=== PATIENT | male | born 1960 | race Caucasian/White ===

== ENCOUNTER 2023-04-17 07:52 | Day surgery (SDC) | payer OTHER, SELFPAY ==
[2023-04-09 13:09] VITALS: BMI 26.4
--- NOTE | 2023-04-11 09:46 | W.SUR.PREOP ---
Pre-Operative Surgical Note
-
Elevated LFTs noted on pre-op labs.
Called PCP for trends given no previous blood work in [facility].
AST 50, ALT 68 in January 2023.
Elevated LFTs likely secondary to medications, in particular Atorvastatin.
Discussed results with Dr. Sloan.
Atorvastatin dosing lowered from 40 mg HS to 20 mg HS. Script sent to pharmacy on 04/11.
Will repeat LFTs on Friday 04/14.
[2023-04-14 09:25] LABS: ALT (SGPT) 86 U/L (0-50); AST (SGOT) 68 U/L (17-59); Albumin 4.3 g/dl (3.5-5.0); Alkaline Phosphatase 95 U/L (38-126); Direct Bilirubin 0.3 mg/dl (0.0-0.4); Total Bilirubin 1.1 mg/dl (0.2-1.3)
[2023-04-17] VITALS (18 sets, daily range): BP systolic 92–142; BP diastolic 51–76; BMI 26.3
[2023-04-17 08:25] LABS: INR 2.93
--- NOTE | 2023-04-17 14:42 | ITS.CL.ABL ---
Electromechanical Assembly Technician - Ablation
Ablation
Procedure Report:
ELECTROPHYSIOLOGY ABLATION STUDY
DATE:: April 17, 2023 REFERRING: Dr. Chi rdz
INDICATION: Paroxysmal supraventricular tachycardia in the form of atypical atrial flutter. As above
HISTORY: See H and P. As above
ANTIARRHYTHMIC DRUG: Flecainide. of note the patient is on Biktarvy
PRE-PROCEDURE STAS: No atrial thrombus
PRESENTING RHYTHM: Sinus rhythm
'TIME-OUT': called and confirmed.
SEDATION/ANESTHESIA: provided via the anesthesia department using general anesthesia (LMA).
INTRAVENOUS/ARTERIAL ACCESS:
Right femoral venous -8Fr
Left femoral venous - 8 Fr, 6 Fr
The Vascade closure was utilized for each venotomy
Ultrasound guidance for bilateral femoral vein access was utilized by me to obtain access with demonstration of normal anatomy
CHADS-VASC Score:
HAS-Bled Score
PROCEDURE:
1. A decapolar CS catheter was placed within the CS for mapping and pacing. This was also used as the reference catheter for the 3-D map. With 280 ms pacing from the right atrium and coronary sinus the patient was inducible for atrial flutter
cycle length 320 ms with activation and entrainment mapping from both atria demonstrating entire cycle length from the low posterior wall outside the right inferior pulmonary vein and an area of scar with the arrhythmia turning around this area of
scar and entrainment less than 30 ms PPI greater than tachycardia cycle length. Tachycardia slowed and transitioned after ablation in this region to clockwise mitral annular flutter. Cycle length of 290 ms with entrainment demonstrated clockwise
mitral annular flutter. Initially a left inferior pulmonary vein to lateral mitral annular line was fashioned although tachycardia only slowed to approximately 310 ms. We then performed an anterior line from approximate 12:00 in the mitral valve
annulus back towards the right superior pulmonary vein roof which slowed tachycardia from 310 ms to 430 ms and then transitioned into a third tachyarrhythmia at 360 ms which paced terminated from pacing for the lateral left atrium. This third
tachyarrhythmia was no longer inducible. Once back in sinus rhythm we confirmed block across the mitral line which was performed anteriorly, entrance and exit block in all 4 pulmonary veins, and entrance and exit block in the left atrial posterior
wall. Pulmonary vein isolation as described as below.
2. The intracardiac ultrasound catheter was positioned in the RA to identify the FO for targeting of transseptal puncture, assist in identification of the pulmonary vein ostia, monitoring pre and post ablation pulmonary vein flow velocities,
monitoring for 'bubble' formation during RF application as a sign of thermal injury, and to monitor for pericardial effusion during mapping and ablation procedure. Left atrial size, LV ejection fraction, and pulmonary vein flows were monitored
pre and post ablation procedure. The other valves were inspected and found to be free of significant regurgitation or stenosis.
3. Half of the calculated heparin bolus was administered prior to the first transeptal puncture. Transseptal puncture was performed to diagnose RA and LA pressure so that safety of LA mapping and ablation could be further assessed, and to access
the left atrium and pulmonary veins for mapping and ablation. This entailed advancing an 10 Hungarian steerable sheath with dilator into the superior vena cava and withdrawing both (monitoring intracardiac ultrasound, fluoroscopy and tip pressure)
with the tip oriented toward the atrial septum. The fossa ovalis was engaged (indicated by sudden displacement of the sheath tip as well as tenting of the fossa seen on intracardiac ultrasound). Left atrial access required a pass with the
Brockenbrough needle extended. Left atrial catheter position was confirmed by pressure monitoring (RA mean pressure 8 mm Hg and LA mean presure 14 mm Hg), LA saturation (99%), as well as fluoroscopy. The sheath was advanced over the dilator and
positioned in the left atrium. This procedure was repeated for the Agilis sheath. The remainder of the calculated heparin bolus was administered and heparin was
infused to maintain ACT at 300 -350 seconds throughout the case.
4. RA pacing was performed via the proximal decapolar poles and LA pacing was performed via the distal decapolr poles.
5. A quadrapolar catheter was first positioned at the His position for His Bundle recording which was tagged via the 3-D Navex sytem, and then passed to the RVA for RV pacing and recording.
6. The 4 mm tactic cath and multipolar catheter placed in each of the LIPV, LSPV, RSPV and the RIPV.
7. Next, a 3-D map was created using Navex. A 3-D reconstructed CT image was compared to the 3-D Navex map to assist in anatomic interpretation, mapping and ablation. The CT image and the NavX image were fused.
8. Utilizing a 4 mm tactic cath catheter the left common ostium as well as the right superior, right middle and right inferior pulmonary veins were isolated and wide absentee-shawnee fashion with entrance and exit block confirmed. In addition to pulmonary
vein isolation there was isolation of the left atrial posterior wall and block across the mitral line which was performed in the right superior pulmonary vein down to the mitral valve annulus at approximately 12:00. Time across the mitral isthmus
was approximately 134 ms. There was entrance and explored confirmed the left atrial posterior wall and there was no heating of the esophagus noted. We paced the septal aspect of the right veins prior to ablation there was no capture phrenic nerve
in these regions.
9. After the posterior wall, 4 pulmonary veins, and mitral line were performed the patient was noninducible for further tachyarrhythmia with AV Wenke block noted at 380 ms.
TOTAL FLOURO TIME: 37 minutes 123 mGy
TOTAL RF DURATION: 47 minutes
REVERSAL OF HEPARIN: 40 mg of protamine, slow IV administration
COMPLICATIONS:
None
Intracardiac US shows no pericardial effusion post ablation.
SUMMARY:
Complex left atrial mapping and ablation.
Isolation of all 4 pulmonary veins, left atrial posterior wall isolation, block across the mitral line from anterior right superior pulmonary vein to 12:00 on the mitral valve annulus. Noninducible for additional tachyarrhythmia. There was no
significant electroanatomic scar in the right atrium.
RECOMMENDATIONS:
1. Admit to monitored bed.
2. Resume anticoagulation
3. Consider stopping flecainide in 1 month
4. Would lower metoprolol as outpatient to 50 mg daily
Copy to: Dr. Chi rdz
[2023-04-17] MEDS: ANESTHETIC LOZENGE 1 LOZENGE PO ×3 (15:23→23:09)
[2023-04-17 15:45] LABS: ACT-LR - POC > 397 Seconds (116-155)
[2023-04-17 15:45] LABS: ACT-LR - POC > 397 Seconds (116-155)
[2023-04-17 15:45] LABS: ACT-LR - POC > 397 Seconds (116-155)
[2023-04-17 15:45] LABS: ACT-LR - POC > 397 Seconds (116-155)
[2023-04-17 15:46] LABS: ACT-LR - POC > 397 Seconds (116-155)
[2023-04-17 15:46] LABS: ACT-LR - POC > 397 Seconds (116-155)
[2023-04-17 15:46] LABS: ACT-LR - POC > 397 Seconds (116-155)
[2023-04-17] MEDS: COUMADIN 2.5 MG PO (18:07)
--- NOTE | 2023-04-17 19:14 | PTCARENOTE ---
Pt received from recovery area post PVI. Pt c/o sore throat only, given lozenge. Bilateral groin sites with dry and intact dressings, no sign of bleeding or hematoma. Pt OOB independently, voiding without difficulty. Telemetry shows sinus rhythm
with occasional PAC's and PVC's.
[2023-04-17] MEDS: LIPITOR 20 MG PO (20:33)
[2023-04-17] MEDS: TAMBOCOR 50 MG PO (20:33)
[2023-04-17] MEDS: ATIVAN 0.5 MG PO (23:09)
[2023-04-18 05:11] LABS: Hematocrit 39.7 % (39.0-52.0); Hemoglobin 13.8 g/dL (13.0-18.0); Mean Corp Hgb Conc. 34.8 g/dL (33.0-37.0); Mean Corpuscular Hgb 32.1 pg (27.0-31.0); Mean Corpuscular Volume 92.3 fL (80.0-94.0); Mean Platelet Volume 10.3 fL (7.4-10.4); Platelet Count 148 10^3/uL (130-400); Red Cell Dist. Width 12.7 % (11.5-14.5); White Blood Cell Count 9.3 10^3/uL (4.8-10.8)
[2023-04-18 05:42] LABS: Blood Urea Nitrogen 13 mg/dl (9-20); Calcium 8.4 mg/dl (8.4-10.2); Carbon Dioxide 26 mmol/L (22-30); Chloride 104 mmol/L (98-107); Estimated Creatinine Clearance 68 ml/min; Glucose 117 mg/dl (70-99); Magnesium 2.2 mg/dl (1.6-2.3); Potassium 4.4 mmol/L (3.5-5.1); Sodium 136 mmol/L (135-145); eGFR > 60.00
[2023-04-18 08:19] VITALS: BP 124/68
[2023-04-18] MEDS: BIKTARVY 50-200-25 MG TABLET 1 TABLET PO (09:09)
[2023-04-18] MEDS: COZAAR 50 MG PO (09:10)
[2023-04-18] MEDS: TAMBOCOR 50 MG PO (09:10)
[2023-04-18] MEDS: ANESTHETIC LOZENGE 1 LOZENGE PO ×2 (09:11→11:41)
[2023-04-18] MEDS: TOPROL XL 100 MG PO (09:26)
--- NOTE | 2023-04-18 09:31 | W.PN.CARDCBS ---
Addendum entered and electronically signed by Anton Sloan MD 04/18/23 10:29:
Patient seen and examined
Agree with BONE COOKING OPERATOR note and assessment
Agree with BONE COOKING OPERATOR plan
Overnight sinus rhythm on telemetry
Examination:
Lumpkin S1 and S2 consistent with mechanical MVR and AVR
Alert and x 3
No murmur
JVP 6
Nonfocal neurologic
Lungs are clear to auscultation
Abdomen soft nontender positive bowel sounds
No extremity edema
Impression:
Symptomatic PAF/Aflutter
post PVI, PW and Mitral flutter line 04/17/23
HTN
HLD
Rheumatic valve disease post Mechanical MVR/AVR 1998
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
HIV
Anxiety
Spinal stenosis
elevated LFT's
SUMMARY:�
Complex left atrial mapping and ablation.
Isolation of all 4 pulmonary veins, left atrial posterior wall isolation, block across the mitral line from anterior right superior pulmonary vein to 12:00 on the mitral valve annulus.� Noninducible for additional tachyarrhythmia.� There was no
significant electroanatomic scar in the right atrium.
Plan:
post ablation feels good
tele SR with brief episodes of PAT
groins stable
OAC Eliquis
Will decrease Metoprolol 50mg daily
Flecainide will stop after 1 mo
ACtivity restrictions reviewed
f/u Dr. Trivedi 2-4 weeks
4-6 mo f/u Dr. Sloan
home today after 24 post anesthesia as pt driving himself home
Original Note:
Today's Communication / Plan
-
stable for dc/ home
Impression / Plan
-
PCP: Stella Enamorado MD
CDY: Chi Trivedi MD
Impression:
Symptomatic PAF/Aflutter
post PVI, PW and Mitral flutter line 04/17/23
HTN
HLD
Rheumatic valve disease post Mechanical MVR/AVR 1998
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
HIV
Anxiety
Spinal stenosis
elevated LFT's
SUMMARY:�
Complex left atrial mapping and ablation.
Isolation of all 4 pulmonary veins, left atrial posterior wall isolation, block across the mitral line from anterior right superior pulmonary vein to 12:00 on the mitral valve annulus.� Noninducible for additional tachyarrhythmia.� There was no
significant electroanatomic scar in the right atrium.
Plan:
post ablation feels good
tele SR with brief episodes of PAT
groins stable
OAC Eliquis
Will decrease Metoprolol 50mg daily
Flecainide will stop after 1 mo
ACtivity restrictions reviewed
f/u Dr. Trivedi 2-4 weeks
4-6 mo f/u Dr. Sloan
home today after 24 post anesthesia as pt driving himself home
Progress Note - Assembly Technician
Subjective
Date of Service: April 18, 2023
no cp, sob
Objective
Labs:
04/18/23 04:44
04/18/23 04:44
Labs
Hgb 13.8 g/dL (13.0-18.0) 04/18/23 04:44
Hct 39.7 % (39.0-52.0) 04/18/23 04:44
Plt Count 148 10^3/uL (130-400) 04/18/23 04:44
PT 31.0 Sec (11.4-14.6) H 04/17/23 08:00
INR 2.93 04/17/23 08:00
Sodium 136 mmol/L (135-145) 04/18/23 04:44
Potassium 4.4 mmol/L (3.5-5.1) 04/18/23 04:44
BUN 13 mg/dl (9-20) 04/18/23 04:44
Creatinine 1.1 mg/dL (0.7-1.3) 04/18/23 04:44
Glucose 117 mg/dl (70-99) H 04/18/23 04:44
Vital Signs and I&O:
Vital Signs
Temp Pulse Resp BP Pulse Ox
98.4 F 59 20 124/68 98
04/18/23 08:18 04/18/23 09:00 04/18/23 08:18 04/18/23 08:19 04/18/23 09:17
Vital Signs
Temp Pulse Resp BP Pulse Ox
98.4 F 59 20 124/68 98
04/18/23 08:18 04/18/23 09:00 04/18/23 08:18 04/18/23 08:19 04/18/23 09:17
Intake & Output
04/16/23 04/17/23 04/18/23 04/19/23
06:59 06:59 06:59 06:59
Intake Total 1640 / 1640 240 / 240
Balance 1640 / 1640 240 / 240
Physical Exam
Physical Exam
NAD< AOX3
S1, S2, RRR
CTAB< non labored, no wheeze
SNTND bsx4
L fem site with scant drainage, soft, R fem c/d/i no HT
--- NOTE | 2023-04-18 10:21 | CM ---
Reviewed chart. Met with Mr. Vora to review discharge plans. He states prior to admission he resides alone in a one story home without any steps to enter. He states prior to admission he was independent with ambulation and adls. He states he does
not have any DME in the home. He states he has a prescription plan and uses [facility]. The discharge plan is to return home when medically stable.
--- NOTE | 2023-04-18 11:13 | W.DS.TRANS ---
DC Summary - Service Captain
-
Discharge Instructions:
Sleep Apnea Risk Intermediate
Discharge Diagnosis/Procedures Afib post ablation
Diet Low Cholesterol
Driving Restrictions No driving for 24 hours
Stop these medications: Stop Flecainide after 1 month.
Decrease Metoprolol to 50mg daily
Instructions:
Stand-Alone Forms: DC Instructions- Cath/EP Lab
Changes to Home Medications: Yes
Discharge Medications:
DC Medications w/original date entered in [facility]
bictegravir 50 mg-emtricitabine 200 mg-tenofovir alafenam 25 mg tablet (Biktarvy) 1 tab PO DAILY 03/27/23
lorazepam 0.5 mg tablet (Ativan) 0.5 mg PO HS 03/27/23
losartan 50 mg tablet 50 mg PO DAILY 03/27/23
warfarin 2.5 mg tablet 2.5 mg PO [facility] 03/27/23
warfarin 5 mg tablet 5 mg PO TUWEFRSA 03/27/23
atorvastatin 20 mg tablet 20 mg PO HS 04/17/23
flecainide 50 mg tablet 50 mg PO Q12H #0 tabs 04/17/23
metoprolol succinate 50 mg tablet,extended release 24 hr (Toprol XL) 50 mg PO DAILY #90 tabs 04/18/23
Home Medication Changes
decreased dose metoprolol from 100mg to 50mg
Pending Results: No
[2023-04-18 12:33] VITALS: BP 93/58
--- NOTE | 2023-04-18 14:35 | PTCARENOTE ---
Pt seen by and Sparkle Lujan NP. Telemetry and IV device removed. Dischage instructions reviewed with pt regarding activity guidelines, wound care, medications, reporting cares and concerns and follow up appt's. Excellent understanding
verbalized. Pt escorted out via wheelchair and pt discharged to home.
== END 2023-04-18 14:00 | disposition home or self-care (01) ==
LOC: CATH 07:52
PROVIDERS: Nurse Practitioner Adult Health; ATTENDING PHYSICIAN Internal Medicine Cardiovascular Disease; FAMILY PHYSICIAN Internal Medicine; OTHER PHYSICIAN Physician Assistant
DX: I48.0 Paroxysmal atrial fibrillation (principal); I48.4 Atypical atrial flutter; I47.19 Other supraventricular tachycardia; G43.909 Migraine, unspecified, not intractable, without status migrainosus; I10 Essential (primary) hypertension; E78.5 Hyperlipidemia, unspecified; I45.2 Bifascicular block; I06.9 Rheumatic aortic valve disease, unspecified; Z95.2 Presence of prosthetic heart valve; M48.02 Spinal stenosis, cervical region; Z21 Asymptomatic human immunodeficiency virus [HIV] infection status; A28.1 Cat-scratch disease; E80.6 Other disorders of bilirubin metabolism; R74.01 Elevation of levels of liver transaminase levels; Z79.01 Long term (current) use of anticoagulants; R79.89 Other specified abnormal findings of blood chemistry; F41.9 Anxiety disorder, unspecified
CPT/HCPCS: C1730; C1894; C1732; C2630; C1892; C1759; 76937; 80048; 80076; 83735; 85027; 85347; 85610; 86900; 86901; 93005; 93656; C1760; C1766